=== PATIENT | female | born 1990 | race Caucasian/White ===

== ENCOUNTER → 2018-05-22 | Outpatient (CLI) | payer BC ==
[2018-05-22 13:56] LABS: HEMOGLOBIN 14.6 g/dl (12.0-15.5); MEAN CORPUSCULAR HEMOGLOBIN 30.9 pg (27.0-33.0); MEAN CORPUSCULAR VOLUME 91.1 fl (80.0-96.0); PLATELET COUNT, AUTOMATED 247 10^3/uL (150-450); RED BLOOD COUNT 4.72 10^6/uL (4.00-5.40); WHITE BLOOD COUNT 6.9 10^3/uL (4.0-10.0)
[2018-05-22 14:09] LABS: CHOLESTEROL RISK RATIO 3.254 (<5); FOLLICLE STIMULATING HORMONE 4.7 mIU/mL; FREE T4 0.9 NG/DL (0.76-1.46); LUTEINIZING HORMONE 6.5 mIU/mL; PROLACTIN 7.9 NG/ML; THYROID STIMULATING HORMONE 4.38 uIU/ML (0.358-3.740)
[2018-05-29 14:25] LABS: 17 HYDROXY PROGESTERONE 94 ng/dL (.); DEHYDROEPIANDROSTERONE SULFATE 301.7 ug/dL (84.8-378.0); INSULIN LEVEL 10.5 uIU/mL (2.6-24.9); TESTOSTERONE FREE (DIRECT) 6.7 pg/mL (0.0-4.2)
== END ==
LOC: M LRY 11:54
PROVIDERS: ATTEND Advanced Practice Midwife
DX: N91.1 Secondary amenorrhea (principal)

== ENCOUNTER → 2018-06-03 | Outpatient (REF) | payer BC | LOC: M SFHCLERA 18:46 | PROVIDERS: ATTEND Nurse Practitioner Family | DX: R30.0 Dysuria (principal) ==

== ENCOUNTER → 2018-06-09 | Outpatient (CLI) | payer BC | LOC: M LRY 17:24 | PROVIDERS: ATTEND Advanced Practice Midwife | DX: N91.1 Secondary amenorrhea (principal) ==

== ENCOUNTER → 2018-07-15 | Outpatient (CLI) | payer BC | LOC: M LRY 14:20 | PROVIDERS: ATTEND Advanced Practice Midwife | DX: N91.1 Secondary amenorrhea (principal) ==

== ENCOUNTER → 2018-12-06 | Outpatient (REF) | payer OTHER | LOC: M SFHCLERA 13:59 | PROVIDERS: ATTEND Nurse Practitioner Family | DX: N92.6 Irregular menstruation, unspecified (principal) ==

== ENCOUNTER → 2018-12-27 | Outpatient (CLI) | payer OTHER | LOC: M LRY 17:36 | PROVIDERS: ATTEND Advanced Practice Midwife | DX: Z34.81 Encounter for supervision of other normal pregnancy, first trimester (principal) ==

== ENCOUNTER → 2019-01-13 | Outpatient (CLI) | payer OTHER ==
[2019-01-13 20:34] LABS: BASO # 0.1 10^3/uL (0.0-0.2); BASO % 0.4 % (0.0-1.0); EOS # 0.2 10^3/uL (0.0-0.5); EOS % 1.6 % (0.0-3.0); HEMATOCRIT 38.6 % (36.0-47.0); HEMOGLOBIN 13.2 g/dl (12.0-15.5); LYMPH # 2.7 10^3/uL (1.5-5.0); LYMPH % 23.3 % (24.0-44.0); MEAN CORPUSCULAR HEMOGLOBIN 31.3 pg (27.0-33.0); MEAN CORPUSCULAR HGB CONC 34.2 g/dl (32.0-36.5); MEAN CORPUSCULAR VOLUME 91.5 fl (80.0-96.0); MONO # 0.9 10^3/uL (0.0-0.8); NEUTROPHILS # 7.8 10^3/uL (1.5-8.5); NEUTROPHILS % 66.2 % (36.0-66.0); PLATELET COUNT, AUTOMATED 302 10^3/uL (150-450); RED BLOOD COUNT 4.22 10^6/uL (4.00-5.40); WHITE BLOOD COUNT 11.7 10^3/uL (4.0-10.0)
[2019-01-13 21:30] LABS: HIV 1&2 SCREEN CENTAUR NEGATIVE (NEGATIVE); RUBELLA IgG QUALITATIVE IMMUNE (IMMUNE)
[2019-01-13 22:31] LABS: CHLAMYDIA DNA AMPLIFICATION NEGATIVE (NEGATIVE); GC DNA AMPLIFICATION NEGATIVE (NEGATIVE)
== END ==
LOC: M WUC 16:52
PROVIDERS: ATTEND Advanced Practice Midwife
DX: Z34.81 Encounter for supervision of other normal pregnancy, first trimester (principal)

== ENCOUNTER → 2019-01-21 | Outpatient (CLI) | payer OTHER | LOC: M PLALAB 12:24 | PROVIDERS: ATTEND Advanced Practice Midwife | DX: Z13.79 Encounter for other screening for genetic and chromosomal anomalies (principal) ==

== ENCOUNTER → 2019-02-21 | Outpatient (REF) | payer OTHER | LOC: M SMT 13:14 | PROVIDERS: ATTEND Advanced Practice Midwife | DX: Z36.89 Encounter for other specified antenatal screening (principal) ==

== ENCOUNTER → 2019-03-25 | Outpatient (CLI) | payer OTHER ==
--- NOTE | 2019-03-25 14:24 | REP ---
Clinical: Anatomical evaluation. Comparison: None . Findings: Examination demonstrates a single live intrauterine in cephalic presentation. motion is identified by technologist. Placenta is noted posterior and grade zero without evidence for placenta previa or abruption. Amniotic fluid volume is normal. Cervix measures 4.4 cm in length and appears closed. No evidence for nuchal cord. Gestational age by LMP 20 weeks 6 days with YANIRA 08/06/2019 . Gestational age by current measurements 20 weeks 6 days with YANIRA 08/06/2019 . FHR equals 153 beats per minute. BPD 4.8 cm 20 weeks 3 days HC 17.4 cm 20 weeks 4 days AC 15.4 cm 20 weeks 0 days FL 3.9 cm 22 weeks 3 days HL 3.5 cm 21 weeks 6 days HC/AC ratio 1.13 Estimated weight 411 grams ( 59th percentile). Anatomical assessment demonstrates normal structures including cranium, choroid plexus, cavum, cerebellum/posterior fossa, facial features, lungs, four-chamber heart, diaphragm, stomach, cord insertion/three-vessel cord, kidneys/bladder, spine, and extremities. Impression: 1. Single live intrauterine in cephalic presentation demonstrating appropriate interval growth. 2. Limited anatomical assessment of the cardiac ventricle outflow tracts noted. Remainder of the anatomical assessment is complete and normal. Electronically Signed by Tom Polk MD 03/25/2019 07:43 A
== END ==
LOC: M RAD 06:40
PROVIDERS: ATTEND Advanced Practice Midwife
DX: Z34.02 Encounter for supervision of normal first pregnancy, second trimester (principal)

== ENCOUNTER → 2019-04-28 | Outpatient (CLI) | payer OTHER ==
--- NOTE | 2019-04-28 13:36 | REP ---
Obstetric sonography: History: Supervision of followup anatomy. Comparison ultrasound is from March 25, 2019. Findings: Scanning through the gravid uterus demonstrates a viable single intrauterine gestation in a cephalic lie. motion is observed and heart rate is recorded at 143 beats per minute. A right posterior placenta is seen grade 1 without evidence of previa. Amniotic fluid is subjectively normal. Closed cervical length measured transabdominally is 4.1 cm. No extrauterine abnormality is observed. There has been appropriate interval growth. Exam quality is inhibited to some degree by maternal body habitus. spine was not optimally visualized today but was visualized previously. No anomaly is seen. The following anatomic structures are identified and felt to be sonographically unremarkable: cranium, choroid plexus, cavum, cerebellum and posterior fossa, nuchal fold, face and profile, four-chamber heart with left and right ventricular outflow tract views, diaphragm, left-sided stomach, abdominal wall cord insertion, three-vessel umbilical cord, kidneys and bladder, upper and lower extremities. Biometry chart: BPD 6.2 cm = 25 weeks 1 day Head circumference 23.9 cm = 26 weeks 4 days Abdominal circumference 21.6 cm = 26 weeks 1 day Femur length 5.1 cm = 27 weeks 2 days HC/AC ratio normal 1.11. Cephalic index normal 0.71. Estimated weight 938 grams, 2 pounds 1 ounce, 62nd percentile for 25 weeks 5 days. Impression: Viable single intrauterine gestation at 26 weeks 0 days by today's composite sonographic criteria. Expected gestational age estimate based on prior sonography is 25 weeks 5 days. YANIRA by prior sonography August 06, 2019. In conjunction with the prior exam, anatomic survey is felt to be complete.
== END ==
LOC: M WHC 10:59
PROVIDERS: ATTEND Advanced Practice Midwife
DX: Z34.02 Encounter for supervision of normal first pregnancy, second trimester (principal)

== ENCOUNTER → 2019-05-05 | Outpatient (CLI) | payer OTHER ==
[2019-05-05 18:43] LABS: HEMOGLOBIN 12.6 g/dl (12.0-15.5); MEAN CORPUSCULAR HEMOGLOBIN 32.8 pg (27.0-33.0); MEAN CORPUSCULAR VOLUME 93.8 fl (80.0-96.0); PLATELET COUNT, AUTOMATED 278 10^3/uL (150-450); RED BLOOD COUNT 3.84 10^6/uL (4.00-5.40); WHITE BLOOD COUNT 10.3 10^3/uL (4.0-10.0)
== END ==
LOC: M LAB 16:59
PROVIDERS: ATTEND Advanced Practice Midwife
DX: Z34.02 Encounter for supervision of normal first pregnancy, second trimester (principal)
CPT/HCPCS: 36415; 82950; 85027; 86850; 86901; J2790

== ENCOUNTER → 2019-07-09 | Outpatient (REF) | payer OTHER | LOC: M PLALAB 10:34 | PROVIDERS: ATTEND Advanced Practice Midwife | DX: O09.03 Supervision of pregnancy with history of infertility, third trimester (principal) ==

== ENCOUNTER → 2019-07-14 | Outpatient (CLI) | payer OTHER ==
--- NOTE | 2019-07-15 02:24 | REP ---
Clinical: Growth evaluation. Comparison: 05/14/2019 . Findings: Examination demonstrates a single live intrauterine in cephalic presentation. motion is identified by technologist. Placenta is noted posterior and grade I I without evidence for placenta previa or abruption. Amniotic fluid volume is normal. Cervix measures 3.6 cm in length and appears closed. No evidence for nuchal cord. Gestational age by LMP 36 weeks 5 days with YANIRA 08/06/2019 . Gestational age by current measurements 35 weeks 6 days with YANIRA 08/12/2019 . FHR equals 155 beats per minute. Estimated weight by current biometrical measurements 2927 grams ( 47th percentile). Amniotic fluid index: 14.5 cm Impression: Single live advanced gestation in cephalic presentation demonstrating appropriate interval growth and estimated weight.
== END ==
LOC: M WHC 13:37
PROVIDERS: ATTEND Advanced Practice Midwife
DX: O26.843 Uterine size-date discrepancy, third trimester (principal); Z3A.36 36 weeks gestation of pregnancy

== ENCOUNTER 2019-08-08 15:15 | Inpatient (IN) | payer OTHER ==
[~2019-08-08] VITALS: Ht 165.1 cm; Wt 111.1 kg
[2019-08-08] MEDS ORDERED: LACTATED RINGER'S 1000 ML IV STA (15:37)
[2019-08-08] MEDS ORDERED: METF-839 PO (15:43)
[2019-08-08] MEDS ORDERED: PRENTAB9 PO (15:43)
[2019-08-08 15:53] VITALS: BP 120/59
--- NOTE | 2019-08-08 16:52 | HPEPDOC ---
Obstetrical History & Physical General Date of Admission Aug 08, 2019 at 15:15 History of Present Illness Chief Complaint: Induction of labor Age: 28 : 1 Term: 0 Pre-term: 0 Abortions: 0 Livin Care Care: Good Care Dating Final EDC: Aug 06, 2019 Final EDC by: LMP EGA at Admission: 40 (+2) Antepartum Course Height (inches): 65 Pre- weight (lbs.): 198 Admission Weight (lbs.): 246 Past Medical History Past Obstetrical History : Past Obstetrical History: Primgravida HAND [employer]IM [employer]ER History: No pertinent history Past Medical History Medical History PCOS Surgical History: Hernia repair Family History Significant Family History: Heart disease, Hypertension Social History Marital Status: Family situation: Spouse/partner home Psychosocial History: No pertinent psych hx * Smoker: non-smoker Alcohol: Denies Drugs: denies Abuse Violence Screening Have you been hit/kicked/slapp: No Have you been sexually assault: No Imunizations Tdap status: current Allergies Coded Allergies: No Known Drug Allergies (Verified Allergy, Unknown, 08/08/19) Medications Scheduled Metformin HCl (Metformin HCl) 500 Mg Tablet, 500 MG PO BID No.137/Iron/Folic Acd ( Vitamin Tablet) 1 Each Tablet, 1 TAB PO DAILY Physical Examination Physical Examination GENERAL: Alert and oriented times three. BREAST: . ABDOMEN: Gravid and non-tender to touch. FETUS: Is vertex (VTX) by sterile vaginal examination (SVE), fetus is vertex (VTX) by Xu. HEART RATE: Regular rate and rhythm. LUNGS: Clear to auscultation (CTA). EXTREMITIES: No edema. No clonus. Deep tendon reflexes (DTRs) + 2. Laboratory Data [facility] Laboratory Tests 2 08/08/19 15:25: Serology Scanned Report Hepatitis B Testing Pertinent Laboratoy Data Blood Type: A- RBC Antibody Screen: Negative HIV: Negative Hepatitis B: Negative Hepatitis C: Negative Rapid Plasma Reagin: Nonreactive Rubella: Immune Chlamydia/Gonorrhea: Negative Group B Streptococcus: Negative Quad Screen Test: Declined Glucose Tolerance Test: 119 Diag/Inter Therapy NIPT low risk female Anatomy Ultrasound Ultrasound Date: Mar 25, 2019 Placenta Location: Posterior Normal Anatomy: Yes Placenta Previa: No Estimated Weight (grams): 411 (59%) Other Ultrasounds 12/20/18 Dating 6w5d, cw with LMP 01/15/2019 +FH 11w0d 04/28/2019 f/u anatomy. Cephalic, normal fluid. EFW 938gm, 62%. Normal anatomy 07/14/2019 Growth Cephalic. EFW 2927gm 47% CONCEPCIÓN 14.5 Steroid Therapy Steroid Therapy: No Vaginal Examination Dilation: 2cm (-3) Effacement: 80% Station: -2 Cervical Consistency: Medium Cervical Position: Posterior Presentation: Cephalic presentation Assessment Heart Rate (FHR): 150 Variability: Moderate Accelerations: Positive Decelerations: None Tocometer Contractions: Yes Frequency: irregular Strength: palpated as mild Assessment/Plan Assessment Gricelda is a 28-year-old (G)1 para (P)0-0-0-0 at 40+2 weeks by 6-week ultrasound. Presents to Labor and Delivery (L&D) for elective IOL at term. Denies LOF,bleeding or regular UC. Reports good movement. Plan Admit and orient per consult Dr Arnold Engine Wiper and consent. Diet: Regular. Group B Streptococcus (GBS) negative. Labs and intravenous (IV) per unit protocol. Counseled on Pitocin and induction of labor (IOL). Lactated Ringers (LR): Bolus 500 mL, then saline lock. Considering epidural Anticipate normal spontaneous delivery (). C-S as appropriate. Nayely Carter CNM Aug 08, 2019 16:52
[2019-08-08] MEDS: miSOPROStol 50 MCG 1/2 TAB (S0191) PO SCH ×2 (17:00→21:26)
[2019-08-08 17:08] LABS: HEMATOCRIT 39.3 % (36.0-47.0); HEMOGLOBIN 13.5 g/dl (12.0-15.5); MEAN CORPUSCULAR HGB CONC 34.4 g/dl (32.0-36.5); MEAN CORPUSCULAR VOLUME 93.1 fl (80.0-96.0); PLATELET COUNT, AUTOMATED 232 10^3/uL (150-450); RED BLOOD COUNT 4.22 10^6/uL (4.00-5.40)
[2019-08-08 17:50] VITALS: BP 127/77
[2019-08-08 18:59] VITALS: BP 113/68
[2019-08-08] MEDS ORDERED: hydrOXYzine 50 MG TAB PO SCH (21:00)
[2019-08-08 21:24] VITALS: BP 125/71
[2019-08-08] MEDS: metFORMIN (GLUCOPHAGE) 500 MG TAB PO SCH (22:56)
[2019-08-09] VITALS (41 sets, daily range): BP systolic 93–146; BP diastolic 50–95
[2019-08-09] MEDS: miSOPROStol 50 MCG 1/2 TAB (S0191) PO SCH (01:47)
[2019-08-09] MEDS: metFORMIN (GLUCOPHAGE) 500 MG TAB PO SCH ×2 (07:46→18:00)
[2019-08-09] MEDS ORDERED: PRENATAL VITAMINS CHEWABLE TABLET PO SCH (09:00)
[2019-08-09] MEDS ORDERED: OXYTOCIN DRIP 30 UNITS in IV 1 EA IV SCH ×2 (10:00→21:25)
[2019-08-09] MEDS ORDERED: FENTANYL 2MCG/ML ROPIVACAINE 0.2% IN 0.9% NACL 100ML IVBAG As Ordered ONE (17:57)
[2019-08-09] MEDS ORDERED: FENTANYL/ROPIVACAINE/NACL BAG 100 ML EPIDURAL SCH (19:30)
[2019-08-09] MEDS ORDERED: EPIDURAL COMMENT XX SCH (19:30)
[2019-08-09] MEDS ORDERED: diphenhydrAMINE 50MG/ML VIAL (J1200) IV PRN (19:30)
[2019-08-09] MEDS ORDERED: LACTATED RINGER'S 1000 ML IV PRN (19:30)
[2019-08-09] MEDS ORDERED: ONDANSETRON 4MG/2ML VIAL IV PRN ×2 (19:30→21:30)
[2019-08-09] MEDS ORDERED: REFRIGERATOR IV KEYS XX PRN (19:30)
[2019-08-09] MEDS ORDERED: ePHEDrine SULFATE 25 MG/5 ML(5MG/ML) SYRINGE IV PRN (19:30)
[2019-08-09] MEDS ORDERED: EPIDURAL/PCA KEYS XX PRN (19:30)
[2019-08-09] MEDS ORDERED: NALOXONE INJ 0.4MG/1ML VIAL (J2310 PER 1MG) IV PRN (19:30)
[2019-08-09] MEDS ORDERED: LR 1,000 ML IV SCH (21:25)
[2019-08-09] MEDS ORDERED: CARBOPROST TROMETHAMINE 250 MCG/ML AMP IM ONE (21:30)
[2019-08-09] MEDS ORDERED: PROMETHAZINE 25 MG TAB PO PRN (21:30)
[2019-08-09] MEDS ORDERED: MEASLES,MUMPS,RUBELLA VACCINE INJ (MMR-II) (90707) SC SCH (21:30)
[2019-08-09] MEDS ORDERED: METHYLERGONOVINE MALEATE 0.2 MG/ML VIAL (J2210) IM ONE (21:30)
[2019-08-09] MEDS ORDERED: METHYLERGONOVINE MALEATE 0.2 MG TAB PO PRN (21:30)
[2019-08-09] MEDS ORDERED: ACETAMINOPHEN 500 MG TAB PO PRN (21:30)
[2019-08-09] MEDS ORDERED: miSOPROStol 200 MCG TAB (S0191) PR ONE (21:30)
[2019-08-09] MEDS ORDERED: RHOGAM 300 MCG (1500 IU) INJ (J2790) IM SCH (21:30)
[2019-08-09] MEDS ORDERED: ACETAMINOPHEN TAB 650MG DOSE (2X325MG) PO PRN (21:30)
[2019-08-09] MEDS ORDERED: DIBUCAINE 1% OINTMENT 30GM TOP PRN (21:30)
[2019-08-09] MEDS ORDERED: DOCUSATE SODIUM 100 MG CAP PO PRN (21:30)
[2019-08-09] MEDS ORDERED: IBUPROFEN 600MG TAB PO PRN (21:30)
[2019-08-09] MEDS ORDERED: LOMOTIL 2.5MG/0.025MG TABLET PO ONE (22:25)
[2019-08-10 01:15] VITALS: BP 140/74
[2019-08-10] MEDS: IBUPROFEN 800 MG TAB PO PRN (05:40)
[2019-08-10] MEDS: LOMOTIL 2.5MG/0.025MG TABLET PO SCH ×5 (05:40→23:58)
[2019-08-10 06:00] VITALS: BP 130/78
[2019-08-10 07:58] LABS: HEMATOCRIT 31.6 % (36.0-47.0); MEAN CORPUSCULAR HEMOGLOBIN 32.2 pg (27.0-33.0); MEAN CORPUSCULAR HGB CONC 34.8 g/dl (32.0-36.5); MEAN CORPUSCULAR VOLUME 92.4 fl (80.0-96.0); PLATELET COUNT, AUTOMATED 239 10^3/uL (150-450); RED BLOOD COUNT 3.42 10^6/uL (4.00-5.40); WHITE BLOOD COUNT 18.2 10^3/uL (4.0-10.0)
[2019-08-10] MEDS: metFORMIN (GLUCOPHAGE) 500 MG TAB PO SCH ×2 (08:05→18:14)
[2019-08-10] MEDS: PRENATAL VITAMINS CHEWABLE TABLET PO SCH (08:05)
[2019-08-10 18:00] VITALS: BP 120/69
[2019-08-11] MEDS: IBUPROFEN 800 MG TAB PO PRN ×2 (01:16→10:29)
[2019-08-11 06:00] VITALS: BP 120/70
[2019-08-11] MEDS: LOMOTIL 2.5MG/0.025MG TABLET PO SCH (06:00)
[2019-08-11] MEDS ORDERED: IBUP80TA PO (07:19)
[2019-08-11] MEDS ORDERED: DIBU10OI TOP (07:19)
[2019-08-11] MEDS: PRENATAL VITAMINS CHEWABLE TABLET PO SCH (08:39)
[2019-08-11] MEDS: metFORMIN (GLUCOPHAGE) 500 MG TAB PO SCH (08:40)
== END 2019-08-11 12:45 | disposition home or self-care (01) | DRG 806 ==
LOC: M LDI 15:15 → M OBS 08-10 01:04
PROVIDERS: ADMIT Advanced Practice Midwife; ATTEND Obstetrics & Gynecology
PROC: 3E033VJ Introduction of Other Hormone into Peripheral Vein, Percutaneous Approach (ICD-10-PCS; 2019-08-08)
PROC: 10E0XZZ Delivery of Products of Conception, External Approach (ICD-10-PCS; principal; 2019-08-09)
PROC: 0KQM0ZZ Repair Perineum Muscle, Open Approach (ICD-10-PCS; 2019-08-09)
DX: O48.0 Post-term pregnancy (principal); Z37.0 Single live birth; O72.1 Other immediate postpartum hemorrhage; Z3A.40 40 weeks gestation of pregnancy; O69.1XX0 Labor and delivery complicated by cord around neck, with compression, not applicable or unspecified; O70.1 Second degree perineal laceration during delivery

== ENCOUNTER 2019-11-10 16:52 | Outpatient (RCR) | payer OTHER ==
[~2019-11-10 16:52] MED LIST: DIBU10OI TOP; IBUP80TA PO; METF-839 PO; PRENTAB9 PO
== END 2019-11-26 ==
LOC: M PT 16:52
PROVIDERS: ATTEND Nurse Practitioner Family
DX: M25.531 Pain in right wrist (principal); M25.532 Pain in left wrist

== ENCOUNTER 2019-12-16 16:48 | Emergency (ER) | payer OTHER ==
[~2019-12-16] VITALS: Ht 165.1 cm; Wt 96.9 kg
[2019-12-16 16:49] VITALS: BP 134/80
== END 2019-12-16 19:38 | disposition left against medical advice (07) ==
LOC: M ED 16:48
DX: F53.0 Postpartum depression (principal); E28.2 Polycystic ovarian syndrome; Z79.899 Other long term (current) drug therapy

== ENCOUNTER → 2020-05-24 | Outpatient (REF) | payer OTHER | LOC: M SFHCWAGY 17:01 | PROVIDERS: ATTEND Obstetrics & Gynecology | DX: Z12.4 Encounter for screening for malignant neoplasm of cervix (principal) ==

== ENCOUNTER 2020-10-28 09:09 | Emergency (ER) | payer OTHER ==
[~2020-10-28] VITALS: Ht 165.1 cm; Wt 93.3 kg
[~2020-10-28 09:09] MED LIST changes: -DIBU10OI TOP; +DIBU28OI2 TOP
[2020-10-28] MEDS ORDERED: FLUTISP (09:32)
[2020-10-28] MEDS ORDERED: MULTTAB20 PO (09:32)
[2020-10-28 10:17] LABS: BASO # 0.1 10^3/uL (0.0-0.2); BASO % 0.7 % (0.0-1.0); EOS # 0.3 10^3/uL (0.0-0.5); EOS % 2.9 % (0.0-3.0); HEMATOCRIT 43.4 % (36.0-47.0); HEMOGLOBIN 14.5 g/dl (12.0-15.5); LYMPH # 2.2 10^3/uL (1.5-5.0); LYMPH % 22.8 % (24.0-44.0); MEAN CORPUSCULAR HEMOGLOBIN 30.3 pg (27.0-33.0); MEAN CORPUSCULAR HGB CONC 33.4 g/dl (32.0-36.5); MEAN CORPUSCULAR VOLUME 90.6 fl (80.0-96.0); MONO # 0.7 10^3/uL (0.0-0.8); MONO % 6.9 % (2.0-8.0); NEUTROPHILS # 6.4 10^3/uL (1.5-8.5); NEUTROPHILS % 66.2 % (36.0-66.0); PLATELET COUNT, AUTOMATED 283 10^3/uL (150-450); RED BLOOD COUNT 4.79 10^6/uL (4.00-5.40); WHITE BLOOD COUNT 9.7 10^3/uL (4.0-10.0)
--- NOTE | 2020-10-28 12:15 | REP ---
INDICATION: 7-8 weeks vag bleeding hcg 249. COMPARISON: None. TECHNIQUE: Real-time sonographic evaluation of pelvis performed utilizing transabdominal and endovaginal technique. FINDINGS: The uterus measures 9.3 x 4.8 x 6.2 cm. Endometrial thickness is 15 mm. No intrauterine gestational sac or fluid collection is seen. Right ovary measures 3.8 x 2.6 x 3.0 cm and left ovary 2.9 x 2.0 x 2.4 cm. Blood flow seen in each ovary with duplex Doppler evaluation, with no torsion. A hyperechoic area is seen peripherally in the right ovary 7 mm in diameter, possibly representing a complex follicle or corpus luteum. Otherwise no adnexal mass is seen. No free fluid is seen. IMPRESSION: Endometrial thickness 15 mm. There is no evidence of intrauterine gestational sac. No adnexal mass or free fluid. Differential diagnosis would include very early intrauterine , missed AB, or ectopic . Suggest correlation with serial quantitative beta HCG values, and follow-up ultrasound if necessary. <Electronically signed by Jarek Ortiz > 10/28/20 [id number]
[2020-10-28] MEDS ORDERED: RHOGAM 300 MCG (1500 IU) INJ (J2790) IM ONE (12:35)
[2020-10-28 13:25] VITALS: BP 125/77
== END 2020-10-28 13:40 | disposition home or self-care (01) ==
LOC: M ED 09:09
DX: O20.8 Other hemorrhage in early pregnancy (principal); Z87.448 Personal history of other diseases of urinary system; Z87.42 Personal history of other diseases of the female genital tract
CPT/HCPCS: 36415; 76801; 76817; 81001; 84702; 85025; 86850; 86901; 87086; 87210; 93976; 96372; 99284; J2790

== ENCOUNTER → 2020-10-30 | Outpatient (CLI) | payer OTHER ==
[~2020-10-30] MED LIST changes: +FLUTISP; +MULTTAB20 PO
== END ==
LOC: M LAB 09:18
PROVIDERS: ATTEND Specialist
DX: O46.90 Antepartum hemorrhage, unspecified, unspecified trimester (principal)

== ENCOUNTER → 2020-11-16 | Outpatient (CLI) | payer OTHER ==
[2020-11-16 17:23] LABS: HEMOGLOBIN A1c 5.2 %
== END ==
LOC: M WUC 11:58
PROVIDERS: ATTEND Obstetrics & Gynecology
DX: E28.2 Polycystic ovarian syndrome (principal)

== ENCOUNTER → 2021-02-28 | Outpatient (CLI) | payer OTHER ==
[2021-02-28 17:07] LABS: HEMATOCRIT 38.9 % (36.0-47.0); HEMOGLOBIN 13.4 g/dl (12.0-15.5); MEAN CORPUSCULAR HEMOGLOBIN 30.8 pg (27.0-33.0); MEAN CORPUSCULAR HGB CONC 34.4 g/dl (32.0-36.5); MEAN CORPUSCULAR VOLUME 89.4 fl (80.0-96.0); PLATELET COUNT, AUTOMATED 269 10^3/uL (150-450); RED BLOOD COUNT 4.35 10^6/uL (4.00-5.40); WHITE BLOOD COUNT 9.7 10^3/uL (4.0-10.0)
[2021-02-28 18:27] LABS: GC DNA AMPLIFICATION NEGATIVE (NEGATIVE)
[2021-02-28 18:42] LABS: HEPATITIS C VIRUS ABY INDEX 0.1 INDEX (<0.8); HIV 1&2 SCREEN CENTAUR NEGATIVE (NEGATIVE)
== END ==
LOC: M WUC 13:04
PROVIDERS: ATTEND Obstetrics & Gynecology
DX: Z34.81 Encounter for supervision of other normal pregnancy, first trimester (principal)

== ENCOUNTER → 2021-04-29 | Outpatient (CLI) | payer OTHER | LOC: M WHC 13:58 | PROVIDERS: ATTEND Advanced Practice Midwife | DX: Z34.92 Encounter for supervision of normal pregnancy, unspecified, second trimester (principal) ==

== ENCOUNTER → 2021-08-10 | Outpatient (REF) | payer OTHER | LOC: M SFHCWAGY 09:55 | PROVIDERS: ATTEND Obstetrics & Gynecology | DX: Z34.93 Encounter for supervision of normal pregnancy, unspecified, third trimester (principal) ==

== ENCOUNTER 2021-09-13 10:52 | Inpatient (IN) | payer OTHER ==
[~2021-09-13] VITALS: Ht 165.1 cm; Wt 110.0 kg
[2021-09-13] VITALS (21 sets, daily range): BP systolic 114–150; BP diastolic 63–91
[2021-09-13] MEDS ORDERED: TUMS500C PO (11:22)
[2021-09-13] MEDS ORDERED: HOME MED LIST COMPLETE! XX SCH (11:25)
[2021-09-13 12:41] LABS: HEMATOCRIT 40.4 % (36.0-47.0); HEMOGLOBIN 14.2 g/dl (12.0-15.5); MEAN CORPUSCULAR HEMOGLOBIN 32.5 pg (27.0-33.0); MEAN CORPUSCULAR HGB CONC 35.1 g/dl (32.0-36.5); MEAN CORPUSCULAR VOLUME 92.4 fl (80.0-96.0); PLATELET COUNT, AUTOMATED 227 10^3/uL (150-450); RED BLOOD COUNT 4.37 10^6/uL (4.00-5.40); WHITE BLOOD COUNT 8.2 10^3/uL (4.0-10.0)
[2021-09-13 13:28] LABS: ALT/SGPT 17 U/L (12-78); BILIRUBIN,TOTAL 0.4 MG/DL (0.2-1.0); CREATININE FOR GFR 0.59 MG/DL (0.55-1.30); GLOMERULAR FILTRATION RATE > 60.0 (>60); LDH LACTATE DEHYDROGENASE 204 U/L (84-246); URIC ACID 5.6 MG/DL (2.6-6.0)
[2021-09-13 13:33] LABS: CREATININE,RANDOM URINE 24.1 MG/DL; TOTAL PROTEIN,RANDOM URINE 10.8 MG/DL (0.0-12.0)
[2021-09-13] MEDS ORDERED: miSOPROStol 50MCG 1/2 TABLET SL SCH (14:25)
[2021-09-13] MEDS ORDERED: OXYTOCIN DRIP 30 UNITS in IV 1 EA IV SCH (18:50)
[2021-09-13] MEDS: LR 1,000 ML IV SCH (19:43)
[2021-09-13] MEDS: CALCIUM CARBONATE 500 MG CHEW U/D PO PRN (23:27)
[2021-09-14] VITALS (19 sets, daily range): BP systolic 106–157; BP diastolic 57–94
[2021-09-14] MEDS: LR 1,000 ML IV SCH ×2 (02:58→05:36)
[2021-09-14 04:12] LABS: HEMATOCRIT 40.8 % (36.0-47.0); HEMOGLOBIN 14.3 g/dl (12.0-15.5); MEAN CORPUSCULAR HEMOGLOBIN 32.6 pg (27.0-33.0); MEAN CORPUSCULAR VOLUME 92.9 fl (80.0-96.0); PLATELET COUNT, AUTOMATED 206 10^3/uL (150-450); RED BLOOD COUNT 4.39 10^6/uL (4.00-5.40); WHITE BLOOD COUNT 11.2 10^3/uL (4.0-10.0)
[2021-09-14] MEDS: CALCIUM CARBONATE 500 MG CHEW U/D PO PRN (04:33)
[2021-09-14] MEDS ORDERED: LIDOCAINE 1% MDV 20ML VIAL As Ordered ONE (06:08)
[2021-09-14] MEDS ORDERED: RHOGAM 300 MCG (1500 IU) INJ (J2790) IM SCH (06:25)
[2021-09-14] MEDS ORDERED: LIDOCAINE 1% MDV 20ML VIAL INFIL ONE (06:25)
[2021-09-14] MEDS ORDERED: OXYTOCIN DRIP 30 UNITS in IV 1 EA IV ONE (06:25)
[2021-09-14] MEDS ORDERED: ACETAMINOPHEN TAB 650MG DOSE (2X325MG) PO PRN (06:25)
[2021-09-14] MEDS ORDERED: DIBUCAINE 1% OINTMENT 30GM TOP PRN (06:25)
[2021-09-14] MEDS ORDERED: ONDANSETRON 4MG 2ML VIAL IV PRN (06:25)
[2021-09-14] MEDS ORDERED: METHYLERGONOVINE MALEATE 0.2 MG TAB PO PRN (06:25)
[2021-09-14] MEDS ORDERED: ACETAMINOPHEN 500 MG TAB PO PRN (06:25)
[2021-09-14] MEDS ORDERED: DOCUSATE SODIUM 100MG CAPSULE PO PRN (06:25)
[2021-09-14] MEDS ORDERED: IBUPROFEN 600MG TAB PO PRN (06:25)
[2021-09-14 06:33] LABS: CORD GAS HCO3 V 23.4 MEQ/L; CORD GAS O2 SAT V 91.4 %; CORD GAS PCO2 V 38.4 mmHg; CORD GAS PH V 7.402 UNITS; CORD GAS PO2 V 45.1 mmHg; CORD GAS SBC V 23.5 MEQ/L; CORD GAS TCO2 V 24.5 MEQ/L
[2021-09-14 06:35] LABS: CORD GAS ABE A -5.4; CORD GAS HCO3 A 23.2 MEQ/L; CORD GAS O2 SAT A 30.6 %; CORD GAS PCO2 A 56.7 mmHg; CORD GAS PH A 7.23 UNITS; CORD GAS PO2 A 16.1 mmHg; CORD GAS SBC A 18.4 MEQ/L
[2021-09-14] MEDS: IBUPROFEN 800 MG TAB PO PRN ×2 (08:38→17:34)
[2021-09-14] MEDS: PRENATAL VITAMINS CHEWABLE TABLET PO SCH (08:38)
[2021-09-15 06:00] VITALS: BP 120/71
[2021-09-15] MEDS: PRENATAL VITAMINS CHEWABLE TABLET PO SCH (08:19)
[2021-09-15] MEDS ORDERED: RHOGAM 300 MCG (1500 IU) INJ (J2790) IM ONE (09:00)
[2021-09-15] MEDS ORDERED: IBUP-1022 PO (11:06)
[2021-09-15] MEDS ORDERED: ACET-683 PO (11:06)
[2021-09-15] MEDS ORDERED: COLA100C5 PO (11:06)
[2021-09-16] MEDS ORDERED: MEASLES,MUMPS,RUBELLA VACCINE INJ (MMR-II) (90707) SC.IMMUN ONE (09:00)
== END 2021-09-15 12:10 | disposition home or self-care (01) | DRG 807 ==
LOC: M LDI 10:52 → M OBS 09-14 08:56
PROVIDERS: ADMIT Specialist; ATTEND Specialist
PROC: 3E0P7GC Introduction of Other Therapeutic Substance into Female Reproductive, Via Natural or Artificial Opening (ICD-10-PCS; 2021-09-13)
PROC: 10E0XZZ Delivery of Products of Conception, External Approach (ICD-10-PCS; principal; 2021-09-14)
PROC: 10907ZC Drainage of Amniotic Fluid, Therapeutic from Products of Conception, Via Natural or Artificial Opening (ICD-10-PCS; 2021-09-14)
PROC: 0HQ9XZZ Repair Perineum Skin, External Approach (ICD-10-PCS; 2021-09-14)
DX: O13.4 Gestational [pregnancy-induced] hypertension without significant proteinuria, complicating childbirth (principal); Z37.0 Single live birth; Z3A.40 40 weeks gestation of pregnancy; O70.0 First degree perineal laceration during delivery

== ENCOUNTER → 2022-03-20 | Outpatient (REF) | payer OTHER ==
[~2022-03-20] MED LIST changes: +ACET-683 PO; +COLA100C5 PO; +IBUP-1022 PO; +TUMS500C PO
== END ==
LOC: M PLALAB 15:29
PROVIDERS: ATTEND Obstetrics & Gynecology
DX: Z12.4 Encounter for screening for malignant neoplasm of cervix (principal)

== ENCOUNTER → 2023-03-23 | Outpatient (REF) | payer OTHER | LOC: M SFHCWAGY 09:58 | PROVIDERS: ATTEND Obstetrics & Gynecology | DX: Z12.4 Encounter for screening for malignant neoplasm of cervix (principal) | CPT/HCPCS: 87624; G0123 ==